=== PATIENT | female | born 1965 | race Caucasian/White ===

== ENCOUNTER → 2019-02-12 | Outpatient (CLI) | payer BC | LOC: COL.RAD 13:02 | DX: I77.819 Aortic ectasia, unspecified site (principal) | CPT/HCPCS: Q9967 ==

== ENCOUNTER → 2020-03-26 | Outpatient (CLI) | payer BC | LOC: COL.RAD 11:30 | DX: I77.810 Thoracic aortic ectasia (principal) | CPT/HCPCS: Q9967 ==